=== PATIENT | male | born 1990 | race African-American/Black ===

== ENCOUNTER 2025-03-11 13:06 | Inpatient (IN) | payer SELFPAY ==
[~2025-03-11] VITALS: Ht 193 cm; Wt 104.8 kg
[2025-03-11 13:11] VITALS: O2SAT 100
[2025-03-11 14:51] LABS: CLARITY URINE CLEAR (CLEAR); COLOR URINE YELLOW (YELLOW); GLUCOSE URINE NEGATIVE (NEGATIVE); KETONES URINE 3+ (NEGATIVE); LEUKOCYTE ESTERASE URINE NEGATIVE (NEGATIVE); NITRITE URINE NEGATIVE (NEGATIVE); OCCULT BLOOD URINE NEGATIVE (NEGATIVE); PH URINE 5.5 (4.5-8.0); PROTEIN URINE NEGATIVE (NEGATIVE); SPECIFIC GRAVITY URINE 1.026 (1.005-1.030); UROBILINOGEN URINE 0.2 E.U./dL (0.2-1.0)
[2025-03-11 14:54] LABS: BASOPHILS % 0.2 % (0.0-2.0); EOSINOPHILS % 0.1 % (0.0-5.0); HEMATOCRIT. 46.6 % (42.0-52.0); HEMOGLOBIN. 15.8 g/dL (14.0-18.0); LYMPHOCYTES % 11.6 % (20.0-50.0); MEAN PLATELET VOLUME 8.7 fl (7.4-10.4); MONOCYTES % 4.4 % (2.0-8.0); NEUTROPHILS % 83.7 % (40.0-76.0); PLATELET 254 x1000/uL (130-400); RED BLOOD CELL COUNT 5.00 mill/uL (4.7-6.1); RED CELL DISTRIBUTION WIDTH 13.6 % (11.6-14.6)
[2025-03-11 15:08] LABS: CREATININE 1.0 mg/dL (0.6-1.3); UREA NITROGEN BLOOD 10 mg/dL (9-23)
[2025-03-11 15:10] LABS: ASPARTATE AMINOTRANSFERASE 25 IU/L (<34); BILIRUBIN DIRECT 0.6 mg/dL (<=3.0)
[2025-03-11 15:11] LABS: BILIRUBIN TOTAL 1.9 mg/dL (0.1-1.0); PROTEIN TOTAL 7.8 g/dL (6.0-8.3)
[2025-03-11] MEDS: IBUPROFEN 600MG TABLET PO ONE (15:24)
[2025-03-11] MEDS ORDERED: ONDANSETRON HCL 4MG/2ML INJ IV PRN (21:15)
[2025-03-11] MEDS: HYDROCODONE/ACETAMINOPHEN 10/325MG TABLET PO PRN (21:55)
[2025-03-11 22:09] VITALS: BP 125/72; PULSE 54; RESP 18; TEMP 36.418
[2025-03-12] VITALS: BP 122/71; PULSE 54; RESP 18; TEMP 36.4; O2SAT 100
[2025-03-12 04:00] VITALS: BP 125/78; PULSE 60; RESP 19; TEMP 36.6; O2SAT 99
[2025-03-12] MEDS: PANTOPRAZOLE 40MG DR TABLET PO SCH (06:27)
[2025-03-12 08:00] VITALS: BP 125/64; PULSE 70; RESP 18; TEMP 36.3; O2SAT 98
[2025-03-12 09:50] LABS: BASOPHILS % 0.2 % (0.0-2.0); EOSINOPHILS % 0.4 % (0.0-5.0); HEMATOCRIT. 49.9 % (42.0-52.0); HEMOGLOBIN. 16.4 g/dL (14.0-18.0); LYMPHOCYTES % 16.5 % (20.0-50.0); MEAN PLATELET VOLUME 9.0 fl (7.4-10.4); MONOCYTES % 8.6 % (2.0-8.0); NEUTROPHILS % 74.3 % (40.0-76.0); PLATELET 261 x1000/uL (130-400); RED BLOOD CELL COUNT 5.42 mill/uL (4.7-6.1); RED CELL DISTRIBUTION WIDTH 13.5 % (11.6-14.6)
[2025-03-12 09:58] LABS: CREATININE 1.1 mg/dL (0.6-1.3); UREA NITROGEN BLOOD 10 mg/dL (9-23)
[2025-03-12 12:00] VITALS: BP 120/73; PULSE 64; RESP 20; TEMP 36.4; O2SAT 100
[2025-03-12 16:00] VITALS: BP 128/77; PULSE 73; RESP 18; TEMP 36.2; O2SAT 100
[2025-03-12 17:39] VITALS: BP 128/71; PULSE 73; RESP 18; TEMP 97.1
== END 2025-03-12 18:34 | disposition home or self-care (01) | DRG 282 ==
LOC: ER 13:06 → EDBEDREQTM 19:57 → EDBEDREQ 19:57 → ENRESERV 20:16 → 6EST 20:50
PROVIDERS: ADMIT Internal Medicine; ATTEND Internal Medicine
DX: K85.20 Alcohol induced acute pancreatitis without necrosis or infection (principal); F12.90 Cannabis use, unspecified, uncomplicated; F17.200 Nicotine dependence, unspecified, uncomplicated; Z79.899 Other long term (current) drug therapy
CPT/HCPCS: 36415; 74176; 76705; 80048; 80076; 81003; 85025; 99285; A4606